=== PATIENT | male | born 1980 | race Caucasian/White ===

== ENCOUNTER 2021-05-13 18:08 | Emergency (ER) | payer OTHER ==
[2021-05-13 19:48] LABS: HEMOGLOBIN 16.1 gm/dl (14.0-17.5); RED BLOOD COUNT 5.11 M/UL (4.20-5.50); WHITE BLOOD COUNT 8.6 K/UL (4.5-11.0)
[2021-05-13] MEDS ORDERED: IBUPROFEN800 MG PO (20:18)
[2021-05-13] MEDS ORDERED: PROAIR HFA8.5 GM INH (20:18)
[2021-05-13 20:25] LABS: BUN/CREATININE RATIO 16 (0-10)
== END 2021-05-13 20:45 | disposition home or self-care (01) ==
LOC: ER1 18:08
PROVIDERS: Emergency Medicine
DX: M54.12 Radiculopathy, cervical region (principal); R06.00 Dyspnea, unspecified; F17.290 Nicotine dependence, other tobacco product, uncomplicated
CPT/HCPCS: 71045; 80053; 82550; 82553; 84484; 85025; 93005; 99284